=== PATIENT | male | born 1965 | race Caucasian/White ===

== ENCOUNTER 2018-07-25 09:19 | Emergency (ER) | payer BC ==
[2018-07-25] MEDS ORDERED: Diazepam 5 MG TAB ONE (10:25)
[2018-07-25] MEDS ORDERED: Dexamethasone 4 MG TAB ONE (10:25)
[2018-07-25] MEDS ORDERED: HYDROcodone/Acetaminophen 10/325 mg Tablet ONE (10:25)
--- NOTE | 2018-07-25 10:57 | RAD ---
LUMBAR SPINE 3 VIEWS: HISTORY: Back pain FINDINGS: Mild degenerative changes are present. No fracture, subluxation or bony destruction is identified. Va scular calcifications are noted. IMPRESSION: Lumbar spondylosis
== END 2018-07-25 11:25 | disposition home or self-care (01) ==
LOC: MERGE 09:19 → ERS 09:19
DX: M54.5 Low back pain (principal); E11.9 Type 2 diabetes mellitus without complications; E78.5 Hyperlipidemia, unspecified; I10 Essential (primary) hypertension; F41.9 Anxiety disorder, unspecified; F17.210 Nicotine dependence, cigarettes, uncomplicated; Z79.899 Other long term (current) drug therapy
CPT/HCPCS: 72100; J8540

== ENCOUNTER 2019-02-12 09:54 | Outpatient (CLI) | payer BC ==
--- NOTE | 2019-02-12 10:50 | MRI ---
MRI LUMBAR SPINE NONCONTRAST: DATE: 02/12/2019 HISTORY: 52-year-old male with lumbar radiculopathy and low back pain. COMPARISON: none FINDINGS: 2 x 2.3 cm right adrenal nodule. The STIR sagittal sequence demonstrates edema in the bilateral posterior paraspinal musculature from approximately the L2 level down to the mid and lower sacral levels. There are 5 standard lumbar type vertebrae. Vertebral body heights are maintained. The T12-L1, L3-4, and L5-S1 disc spaces are maintained with normal signal. There is mild to moderate disc space narrowing at L1-2, L2-3, and L4-5. Alignment is normal. T12-L1:Normal L1-2:Slight degenerative retrolisthesis of L2 on L3. Diffuse disc bulge. Mild central spinal canal st enosis. No high-grade neural foraminal stenosis. Conus medullaris terminates at this level. L2-3:Mild disc bulge. Mild bilateral neural foraminal stenosis. Mild to moderate central spinal canal stenosis. Posterior epidural fat pad. Moderate thecal sac stenosis. L3-4:Mild disc bulge. Mild bilateral neural foraminal stenosis. Mild central spinal canal stenosis. P osterior epidural fat pad. Mild to moderate thecal sac stenosis. L4-5:Superimposed on a diffuse disc bulge, there is a right-paracentral focal small disc herniation w hich indents the thecal sac and abuts the bilateral L5 nerve roots. Mild to moderate central spinal canal stenosis. Moderate bilateral neural foraminal stenosis. L5-S1:Moderate right facet DJD. Mild to moderate bilateral neural foraminal stenosis. Left lateral re cess stenosis around left conjoined nerve root. No central stenosis. IMPRESSION: 1. Predominantly mild lumbar spondylosis, with several levels of mild to moderate degenerative disc d isease. 2. Disc bulge plus right paracentral focal disc herniation at L4-5, mildly displacing bilateral L5 ne rve roots. 3.A 2.3 cm right adrenal nodule. Recommend MRI abdomen with and without contrast, adrenal mass protoc ol. 4. Edema in bilateral posterior paraspinal musculature, suggestive of muscle strain injury.
== END 2019-02-12 09:55 | disposition home or self-care (01) ==
LOC: TBSIIMAG 09:54
PROVIDERS: ATTEND Physician Assistant Surgical
DX: M47.26 Other spondylosis with radiculopathy, lumbar region (principal); M54.5 Low back pain; M51.16 Intervertebral disc disorders with radiculopathy, lumbar region; R60.0 Localized edema; E27.8 Other specified disorders of adrenal gland
CPT/HCPCS: 36415; 72148; 80053; 80061; 81001; 82043; 84443; 85025

== ENCOUNTER 2019-04-07 13:48 | Outpatient (CLI) | payer BC ==
[2019-04-07] MEDS ORDERED: Magnevist 469MG/ML 20 ML VIAL ONE (15:59)
--- NOTE | 2019-04-07 15:59 | MRI ---
EXAM: MRI of the abdomen without and with contrast COMPARISON: MRI lumbar spine 02/12/2019 HISTORY: Adrenal nodule TECHNIQUE: Multiplanar multi sequence MR images were taken of the abdomen without and with IV contras t. [An MRCP was performed.] FINDINGS: Liver: There is a 1 cm area of high T2 signal and enhancement in the left lobe of the liver. Initiall y, there is peripheral nodular enhancement which fills in on delayed images consistent with a hemangioma. No loss of signal is seen on out of phase images. No abnormal enhancement. Gallbladder: No filling defects or gallbladder wall thickening. Common bile duct: Normal caliber without filling defects Adrenal glands: There is a 2.4 similar right adrenal nodule. This demonstrates loss of signal on out of phase images consistent with a fat-containing adrenal adenoma. No left adrenal mass.. Kidneys: No hydronephrosis or focal renal lesions. No abnormal areas of enhancement. Spleen: Unremarkable. Pancreas: Unremarkable. No abnormal enhancement. Retroperitoneum: No enlarged lymph nodes Bones: No marrow signal abnormality. IMPRESSION: 1. Right fat-containing adrenal adenoma 2. Hepatic hemangioma
== END 2019-04-07 13:49 | disposition home or self-care (01) ==
LOC: TBSIIMAG 13:48
PROVIDERS: ATTEND Family Medicine
DX: E27.8 Other specified disorders of adrenal gland (principal); D18.09 Hemangioma of other sites; D35.01 Benign neoplasm of right adrenal gland
CPT/HCPCS: 74183; A9579

== ENCOUNTER 2020-09-02 11:10 | Outpatient (CLI) | payer OTHER | END 2020-09-02 11:11 | disposition home or self-care (01) | LOC: BICRAD 11:10 | PROVIDERS: ATTEND Internal Medicine | DX: Z02.71 Encounter for disability determination (principal); M51.36 Other intervertebral disc degeneration, lumbar region; M47.816 Spondylosis without myelopathy or radiculopathy, lumbar region; M19.041 Primary osteoarthritis, right hand | CPT/HCPCS: 72100 ==

== ENCOUNTER 2022-06-30 13:03 | Outpatient (CLI) | payer BC | END 2022-06-30 13:04 | disposition home or self-care (01) | LOC: BICCT 13:03 | PROVIDERS: ATTEND Family Medicine | DX: Z12.2 Encounter for screening for malignant neoplasm of respiratory organs (principal); F17.210 Nicotine dependence, cigarettes, uncomplicated | CPT/HCPCS: 71271 ==